=== PATIENT | male | born 2000 | race Hispanic/Latino ===

== ENCOUNTER 2025-03-29 12:25 | Emergency (ER) | payer OTHER, SELFPAY ==
[~2025-03-29] VITALS: Ht 185.4 cm; Wt 71.3 kg
[2025-03-29 12:42] VITALS: BP 113/63; TEMP 97.4; O2SAT 99
[2025-03-29] MEDS ORDERED: ACET-897 PO (22:50)
[2025-03-29] MEDS ORDERED: BACI500O8 TOP (23:56)
[2025-03-29] MEDS ORDERED: IBUP-1022 PO (23:56)
[2025-03-29] MEDS ORDERED: CALALOT4 TOP (23:56)
== END 2025-03-29 13:40 | disposition left against medical advice (07) ==
LOC: M ED 12:25
DX: Z53.21 Procedure and treatment not carried out due to patient leaving prior to being seen by health care provider (principal)

== ENCOUNTER 2025-03-29 21:30 | Emergency (ER) | payer OTHER, SELFPAY ==
[~2025-03-29] VITALS: Ht 185.4 cm; Wt 72.1 kg
[2025-03-29 21:32] VITALS: BP 134/69; TEMP 98.3; O2SAT 100
[2025-03-29] MEDS ORDERED: ACET-897 PO (22:50)
[2025-03-29] MEDS: IBUPROFEN 600 MG TAB PO ONE (23:55)
[2025-03-29] MEDS ORDERED: CALALOT4 TOP (23:56)
[2025-03-29] MEDS ORDERED: IBUP-1022 PO (23:56)
[2025-03-29] MEDS ORDERED: BACI500O8 TOP (23:56)
== END 2025-03-30 00:07 | disposition home or self-care (01) ==
LOC: M ED 21:30
DX: L55.9 Sunburn, unspecified (principal); R51.9 Headache, unspecified; R42 Dizziness and giddiness; Z79.1 Long term (current) use of non-steroidal anti-inflammatories (NSAID); Z79.899 Other long term (current) drug therapy